=== PATIENT | female | born 1985 | race Caucasian/White ===

== ENCOUNTER 2017-09-18 21:54 | Emergency (ER) | payer SELFPAY ==
[~2017-09-18] VITALS: Ht 170.2 cm; Wt 64.0 kg
[2017-09-18 21:58] VITALS: BP 110/66
== END 2017-09-19 00:30 | disposition left against medical advice (07) ==
LOC: ER 21:54
DX: R56.9 Unspecified convulsions (principal); Z53.21 Procedure and treatment not carried out due to patient leaving prior to being seen by health care provider